=== PATIENT | male | born 1955 | race Caucasian/White ===

== ENCOUNTER 2017-05-21 15:22 | Inpatient (IN) | payer SELFPAY ==
[~2017-05-21] VITALS: Ht 167.6 cm; Wt 72.8 kg
--- NOTE | ~2017-05-21 | EKG ---
[address] [address] ELECTROCARDIOGRAM REPORT Name: ROBE MCINTOSH Room #: 213-P ADM IN M.R.#: [id number] Admission: 05/21/17 Attend Phys: Nael Thomas MD Discharge: Date of : 53 Report #: [id number] THIS REPORT FOR: //name// [facility] Test Date: 2017-05-22 Test Time: 09:26:31 Pat Name: ROBE MCINTOSH Department: Room: 213 P Gender: M Flat Ironer: MICHAELA : 1955 Requested By: Ruma Haley Order Number: [id number] MD: Carlton Duvall Measurements Intervals [place] Rate: 103 P: 42 WI: 166 QRS: -30 QRSD: 79 T: 80 QT: 351 QTc: 460 Interpretive Statements Sinus tachycardia Abnormal R-wave progression, late transition Left ventricular hypertrophy Inferior infarct, old No previous ECG available for comparison Electronically Signed On 05-23-2017 7:34:35 BALANCE BRIDGE INSPECTOR by Carlton Duvall [email or web address] <ELECTRONICALLY SIGNED> By: Carlton Duvall MD, [facility] 05/23/17 0734 5 5 Carlton Duvall MD, [facility] /EPI
--- NOTE | ~2017-05-21 | EKG ---
[address] [address] ELECTROCARDIOGRAM REPORT Name: ROBE MCINTOSH KASSY Room #: 213-P ADM IN M.R.#: [id number] Admission: 05/21/17 Attend Phys: Nael Thomas MD Discharge: Date of : 53 Report #: [id number] THIS REPORT FOR: //name// [facility] Test Date: 2017-05-21 Test Time: 18:46:43 Pat Name: ROBE MCINTOSH Department: Room: 213 P Gender: M Dean Of Education: : 1955 Requested By: Donna Wynn Order Number: [id number] MD: Carlton Duvall Measurements Intervals [place] Rate: 110 P: 40 HI: 149 QRS: -29 QRSD: 84 T: 70 QT: 315 QTc: 427 Interpretive Statements Sinus tachycardia Poor R wave progression Inferior infarct, old No previous ECG available for comparison Electronically Signed On 05-23-2017 7:30:05 DISTRIBUTION COLLECTION OPERATOR by Carlton Duvall [email or web address] <ELECTRONICALLY SIGNED> By: Carlton Duvall MD, [facility] 05/23/17 0730 45 45 Carlton Duvall MD, FACC /EPI
--- NOTE | ~2017-05-21 | 2DMMODE ---
[place] [address] [facility] [place] [address] 2 D/M-MODE ECHOCARDIOGRAM Name: ARNALDOROBE NICHOLEWEY Room #: 213-P ADM IN M.R.#: [id number] Admission: 05/21/17 Attend Phys: Nael Thomas, Discharge: Date of : 53 Date of Service: 05/23/17 1019 Report #: [id number] THIS REPORT FOR: //name// APPROVED REPORT Study performed: 05/23/2017 09:34:24 EXAM: Comprehensive 2D, Doppler, and color-flow Echocardiogram Patient Location: Echo lab Room #: 213 Status: routine BSA: 1.82 HR: 83 bpm BP: 131/83 mmHg Rhythm: NSR Other Information Study Quality: Good Indications Chest pain, short of breath. Hx: DM, HTN, HLP 2D Dimensions RVDd: 38.93 mm LVEF(%): 27.73 (>50%) IVSd: 11.73 (7-11mm) LVOT Diam: 20.75 (18-24mm) LVDd: 44.93 mm PWd: 11.62 (7-11mm) Ascending Ao: 31.03 (22-36mm) LVDs: 39.16 (25-40mm) García's LVEF: 27.73 % Volumes Left Atrial Volume (Systole) Single Plane 4CH: 39.34 mL Single Plane 2CH: 42.60 mL LA ESV Index: 24.00 mL/m2 Aortic Valve AoV Peak Chetan.: 0.89 m/s AO Peak Gr.: 3.15 mmHg LVOT Max P.09 mmHg LVOT Max V: 0.72 m/s GISELA Vmax: 2.75 cm2 Mitral Valve E/A Ratio: 1.8 MV Decel. Time: 141.84 ms MV E Max Chetan.: 1.12 m/s [facility] [place] [address] 2 D/M-MODE ECHOCARDIOGRAM Name: ROBE MCINTOSH KASSY Room #: 213-P [facility] IN .R.#: [id number] Admission: 05/21/17 Attend Phys: Nael Thomas, Discharge: Date of : 53 Date of Service: 05/23/17 1019 Report #: [id number] MV A Chetan.: 0.62 m/s MV PHT: 41.13 ms IVRT: 62.28 ms Pulmonary Valve PV Peak Chetan.: 0.71 m/s PV Peak Gr.: 2.02 mmHg Pulmonary Vein P Vein S: 0.38 m/s P Vein D: 0.48 m/s P Vein S/D Ratio: 0.79 Tricuspid Valve TR Peak Chetan.: 2.63 m/s RAP Estimate: 5.00 mmHg TR Peak Gr.: 27.70 mmHg PA Pressure: 33.00 mmHg Left Ventricle The left ventricle is normal size. Mild concentric left ventricular hypertrophy. Left ventricular systolic function is moderate to severely decreased. LVEF is 35%. Moderate diastolic dysfunction is present (pseudonormal filling). Right Ventricle The right ventricle is normal size. The right ventricular systolic function is normal. Atria The left atrium size is normal. The right atrium size is normal. Aortic Valve The aortic valve is normal in structure. No aortic regurgitation is present. There is no aortic valvular stenosis. Mitral Valve The mitral valve is normal in structure. Mild mitral regurgitation. Tricuspid Valve The tricuspid valve is normal in structure. Trace to mild tricuspid regurgitation. Estimated PAP is 30-35mmHg. Pulmonic Valve The pulmonary valve is normal in structure. Trace pulmonic regurgitation. [facility] [address] [place] [address] 2 D/M-MODE ECHOCARDIOGRAM Name: ARNALDOROBE Room #: 213-P [facility] IN [facility]#: [id number] Admission: 05/21/17 Attend Phys: Nael Thomas, Discharge: Date of : 53 Date of Service: 05/23/17 1019 Report #: [id number] Great Vessels The aortic root is normal in size. The ascending aorta is normal in size. IVC is normal in size and collapses >50% with inspiration. Pericardium There is no pericardial effusion. <Conclusion> The left ventricle is normal size. Mild concentric left ventricular hypertrophy. Left ventricular systolic function is moderate to severely decreased. LVEF is 35%. Moderate diastolic dysfunction is present (pseudonormal filling). The right ventricle is normal size. The left atrium size is normal. The aortic valve is normal in structure. There is no aortic valvular stenosis. Mild mitral regurgitation. Trace to mild tricuspid regurgitation. Estimated PAP is 30-35mmHg. The aortic root is normal in size. There is no pericardial effusion. <ELECTRONICALLY SIGNED> By: Percy Smith MD, FACC 05/23/17 1019 1019 1019 Percy Smith MD, FACC /INF
--- NOTE | ~2017-05-21 | HC ---
[facility] [place] [address] CONSULTATION Name: ROBE MCINTOSH Room #: 213-P [facility] IN M.R.#: [id number] Admission: 05/21/17 Attend Phys: Nael Thomas MD Discharge: 05/24/17 Date of : 53 Report #: [id number] THIS REPORT FOR: //name// CC: Donna Chand HISTORY OF PRESENT ILLNESS: A 61-year-old male who was transferred here with some subtle EKG changes and recurrent chest pain, shortness of breath. He had presented to [facility]. He apparently has longstanding diabetes, and 10 years ago, he decided to stop taking all of his medications including his diabetic medicines, his hypertensives and cholesterol medicines. Apparently . He worked and retired after 35 years from the same company and now works as a cashier gambling. He has no benefits, no insurance, one reason why he did not take medications, but also felt like they will not do him any good. He has an EKG here with some nonspecific changes, delayed R waves and possibly a strain pattern consistent with LVH. Troponins are negative. His glucoses were 500, now 278 here. Creatinine 1.2. He is becoming febrile. There has been some mild cough and congestion symptoms. Temperatures up to 101 here. So there is an infectious process also going on here. White count was 11.2 there, with an H and H of 16 and 48. He was transferred here a few hours ago. BNP was 1264, so not terribly impressive. Troponins have been negative. He also presented there with initial systolic pressure of 224. PAST MEDICAL HISTORY: Positive for hypertension, diabetes, hypercholesterolemia, complete medication noncompliance, abnormal EKG with T-wave strain pattern and some questionable inversion. Hemoglobin A1c 11.0. SOCIAL HISTORY: He is . He has 3 children. Currently works as a cashier gambling. No significant alcohol or tobacco. FAMILY HISTORY: His father had his initial coronary event at age 60. IMAGING STUDIES: CT of the chest shows no evidence of a pulmonary embolism, interstitial edema is noted. He was given a shot of Lasix. So question of pneumonitis and/or heart failure or combination. Some peribronchial thickening in bilateral lower lobes due to the bronchitis. ALLERGIES: JOIE INHIBITORS. REVIEW OF SYSTEMS: Negative except for some nocturia and increasing fatigue. PHYSICAL EXAMINATION: VITAL SIGNS: Pulse is 107, blood pressure 150/74. T-max is 101.2. HEENT: ____. Pharynx is clear. NECK: Shows preserved upstrokes without JVD or bruits. LUNGS: Clear anteriorly. They are diminished in the bases. There are fine crackles in the bases bilaterally. [facility] [address] [place] [address] CONSULTATION Name: ARNALDOROBE Room #: 213-P [facility] IN M.R.#: [id number] Admission: 05/21/17 Attend Phys: Nael Thomas MD Discharge: 05/24/17 Date of : 53 Report #: [id number] CARDIOVASCULAR: Tachycardic, S1, S2. No pathologic murmur. ABDOMEN: Soft, slightly protuberant, slightly tender in the epigastric area. No HSM. EXTREMITIES: Reveal diminished pulses, but no significant edema. NEUROLOGIC: Nonfocal. SKIN: Warm and dry without xanthoma or ulcer. MUSCULOSKELETAL: No gross joint deformity. ASSESSMENT: 1. Hypertensive urgency. 2. Abnormal EKG, possible strain. 3. Suspected coronary artery disease with multiple risk factors. 4. Diabetes. 5. Hypercholesterolemia. RECOMMENDATIONS AND PLAN: Obviously treating this blood sugar elevation. Hemoglobin A1c is large. Also blood cultures have been sent. I suspect empiric antibiotics will be initiated. We will initiate Coreg 12.5 b.i.d., losartan 100, Lipitor 80 and aspirin. Troponins are negative, no need to repeat. ____ he have an echo Doppler, I suspect there is LVH and possibly some diastolic and/or systolic dysfunction from the longstanding uncontrolled hypertension. At some point, we will need testing for ischemic etiology here, but this increasing fever, bronchitis, pneumonitis necessitate infectious etiology. We will continue this. Discussed with the patient and two of his children. We will look to follow with you. <ELECTRONICALLY SIGNED> By: Percy Smith MD, FACC 06/06/17 1427 2138 0745 Percy Smith MD, FACC /nt
[2017-05-21 19:41] VITALS: BP 151/75
[2017-05-21] MEDS ORDERED: NOHOMEMEDICATIONS (20:02)
[2017-05-21 20:16] LABS: HEMATOCRIT 49.7 % (42.0-52.0); HEMOGLOBIN 16.6 gm/dL (14.0-18.0); MCH 30.2 pg (26.0-34.0); MCHC 33.5 g/dL (28.0-37.0); MCV 90.1 fL (80.0-100.0); RBC 5.51 mil/uL (4.50-6.00); WBC 13.6 thou/uL (4.0-11.0)
[2017-05-21 20:30] LABS: ALBUMIN 3.2 g/dL (3.4-5.0); CALCIUM 9.5 mg/dL (8.5-10.1); CREATININE 1.3 mg/dL (0.7-1.3); POTASSIUM 4.2 mmol/L (3.5-5.1); TOTAL BILIRUBIN 0.6 mg/dL (<0.1-1.0); TOTAL PROTEIN 7.1 g/dL (6.4-8.2)
[2017-05-21 22:24] VITALS: BP 127/59
[2017-05-22 00:45] VITALS: BP 140/66
[2017-05-22 03:45] VITALS: BP 136/70
[2017-05-22 07:41] LABS: CHOLESTEROL 176 mg/dL (<200); HDL CHOLESTEROL 40 mg/dL (>40); LDL CHOLESTEROL 111 mg/dL (<100); TC:HDL 4.4 Ratio (Not establshd); TRIGLYCERIDE 127 mg/dL (<150); VLDL 25 mg/dL (<40)
[2017-05-22 07:51] LABS: HEMATOCRIT 42.7 % (42.0-52.0); MCV 88.5 fL (80.0-100.0); RBC 4.83 mil/uL (4.50-6.00); RDW 13.5 % (10.5-14.5); WBC 9.1 thou/uL (4.0-11.0)
[2017-05-22 07:54] LABS: CREATININE 1.8 mg/dL (0.7-1.3); HEMOGLOBIN 14.5 gm/dL (14.0-18.0); MAGNESIUM 1.7 mg/dL (1.8-2.4); POTASSIUM 4.5 mmol/L (3.5-5.1)
[2017-05-22 08:55] VITALS: BP 151/90
[2017-05-22 11:40] VITALS: BP 163/87
[2017-05-22 17:15] VITALS: BP 150/93
[2017-05-22 21:05] VITALS: BP 110/66
[2017-05-23 03:43] VITALS: BP 114/64
[2017-05-23 05:13] LABS: HEMATOCRIT 40.3 % (42.0-52.0); HEMOGLOBIN 13.6 gm/dL (14.0-18.0); MCH 30.2 pg (26.0-34.0); MCHC 33.7 g/dL (28.0-37.0); MCV 89.6 fL (80.0-100.0); RBC 4.5 mil/uL (4.50-6.00); RDW 13.4 % (10.5-14.5); WBC 8.4 thou/uL (4.0-11.0)
[2017-05-23 05:24] LABS: CALCIUM 8.2 mg/dL (8.5-10.1); CREATININE 1.9 mg/dL (0.7-1.3); MAGNESIUM 1.8 mg/dL (1.8-2.4); POTASSIUM 4.1 mmol/L (3.5-5.1)
[2017-05-23 07:40] VITALS: BP 131/83
[2017-05-23 15:53] VITALS: BP 136/77
[2017-05-23 19:28] VITALS: BP 137/73
[2017-05-24 02:11] LABS: GLYCOHEMOGLOBIN (HGB A1C) 11.5 % (4.8-5.6)
[2017-05-24 03:36] LABS: HEMATOCRIT 43.2 % (42.0-52.0); HEMOGLOBIN 14.5 gm/dL (14.0-18.0); MCH 30.2 pg (26.0-34.0); MCHC 33.6 g/dL (28.0-37.0); MCV 89.8 fL (80.0-100.0); RBC 4.81 mil/uL (4.50-6.00); RDW 13.3 % (10.5-14.5); WBC 8.9 thou/uL (4.0-11.0)
[2017-05-24 03:39] VITALS: BP 146/83
[2017-05-24 03:42] LABS: CALCIUM 8.4 mg/dL (8.5-10.1); CREATININE 1.5 mg/dL (0.7-1.3)
[2017-05-24 07:50] VITALS: BP 145/78
[2017-05-24 11:28] VITALS: BP 154/75
[2017-05-24] MEDS ORDERED: LEVAQUIN 750 M750 MG PO (12:48)
[2017-05-24] MEDS ORDERED: LIPITOR80 MG PO (12:49)
[2017-05-24] MEDS ORDERED: LASIX 40 MG TAB40 M2 PO (12:58)
[2017-05-24] MEDS ORDERED: VENTOLIN HFA 1818 GM INH (12:58)
[2017-05-24] MEDS ORDERED: ASA5UEC PO (12:58)
[2017-05-24] MEDS ORDERED: LANTUS100 UNIT/M SUBQ (12:58)
[2017-05-24] MEDS ORDERED: COZAAR100 MG PO (12:58)
[2017-05-24] MEDS ORDERED: CARVEDILOL12.5 MG PO (13:02)
[2017-05-24 13:43] VITALS: BP 154/75
== END 2017-05-24 15:05 | disposition home or self-care (01) | DRG 193 ==
LOC: 3N 15:22 → 2N 16:12
PROVIDERS: Internal Medicine; Nurse Practitioner
DX: J18.9 Pneumonia, unspecified organism (principal); J96.01 Acute respiratory failure with hypoxia; N17.9 Acute kidney failure, unspecified; I42.9 Cardiomyopathy, unspecified; I10 Essential (primary) hypertension; E78.5 Hyperlipidemia, unspecified; E11.65 Type 2 diabetes mellitus with hyperglycemia; I16.0 Hypertensive urgency; E78.00 Pure hypercholesterolemia, unspecified; Z91.14 Patient's other noncompliance with medication regimen; Z88.8 Allergy status to other drugs, medicaments and biological substances; Z82.49 Family history of ischemic heart disease and other diseases of the circulatory system
CPT/HCPCS: 10081

== ENCOUNTER → 2019-08-24 | Outpatient (CLI) | payer OTHER ==
[~2019-08-24] MED LIST: ASA5UEC PO; BASAGLAR K100 UNIT/1 SUBQ; CARVEDILOL12.5 MG PO; COZAAR 25 MG TA25 M1 PO; COZAAR100 MG PO; IRON18 M1 PO; LANTUS100 UNIT/M SUBQ; LASIX 40 MG TAB40 M2 PO; LEVAQUIN 750 M750 MG PO; LIPITOR80 MG PO; NOHOMEMEDICATIONS; NOVOLOG100 UNIT/M; OSTERA TABLET1 EAC1 PO; PEPCID AC10 MG PO; PLAVIX 75 MG TA75 MG PO; TORSEMIDE20 MG PO; UNICOMPLEX M TA1 TA1 PO; VENTOLIN HFA 1818 GM INH; XARELTO15 MG PO
== END ==
LOC: SJCVCIMAG 09:19
PROVIDERS: ATTEND Internal Medicine Cardiovascular Disease
DX: I70.203 Unspecified atherosclerosis of native arteries of extremities, bilateral legs (principal); I10 Essential (primary) hypertension; E78.5 Hyperlipidemia, unspecified; E11.9 Type 2 diabetes mellitus without complications; Z88.8 Allergy status to other drugs, medicaments and biological substances; Z79.899 Other long term (current) drug therapy; Z95.820 Peripheral vascular angioplasty status with implants and grafts

== ENCOUNTER → 2019-08-30 | Outpatient (CLI) | payer OTHER ==
[~2019-08-30] MED LIST changes: -BASAGLAR K100 UNIT/1 SUBQ; -COZAAR 25 MG TA25 M1 PO; -IRON18 M1 PO; -NOVOLOG100 UNIT/M; -OSTERA TABLET1 EAC1 PO; -PEPCID AC10 MG PO; -PLAVIX 75 MG TA75 MG PO; -TORSEMIDE20 MG PO; -UNICOMPLEX M TA1 TA1 PO; -XARELTO15 MG PO
== END ==
LOC: SJCVC 09:28
DX: R94.31 Abnormal electrocardiogram [ECG] [EKG] (principal); I25.10 Atherosclerotic heart disease of native coronary artery without angina pectoris; I73.9 Peripheral vascular disease, unspecified; E78.00 Pure hypercholesterolemia, unspecified; I70.1 Atherosclerosis of renal artery; I48.0 Paroxysmal atrial fibrillation; D68.59 Other primary thrombophilia; I12.9 Hypertensive chronic kidney disease with stage 1 through stage 4 chronic kidney disease, or unspecified chronic kidney disease; N18.3 Chronic kidney disease, stage 3 (moderate); E08.00 Diabetes mellitus due to underlying condition with hyperosmolarity without nonketotic hyperglycemic-hyperosmolar coma (NKHHC); Z79.4 Long term (current) use of insulin; Z79.899 Other long term (current) drug therapy

== ENCOUNTER → 2019-09-20 | Outpatient (CLI) | payer OTHER ==
[~2019-09-20] MED LIST changes: +BASAGLAR K100 UNIT/1 SUBQ; +COZAAR 25 MG TA25 M1 PO; +IRON18 M1 PO; +NOVOLOG100 UNIT/M; +OSTERA TABLET1 EAC1 PO; +PEPCID AC10 MG PO; +PLAVIX 75 MG TA75 MG PO; +TORSEMIDE20 MG PO; +UNICOMPLEX M TA1 TA1 PO; +XARELTO15 MG PO
== END ==
LOC: SJCVCIMAG 08:10
PROVIDERS: ATTEND Internal Medicine Cardiovascular Disease
DX: I13.10 Hypertensive heart and chronic kidney disease without heart failure, with stage 1 through stage 4 chronic kidney disease, or unspecified chronic kidney disease (principal); E11.22 Type 2 diabetes mellitus with diabetic chronic kidney disease; N18.9 Chronic kidney disease, unspecified; I48.0 Paroxysmal atrial fibrillation; I42.9 Cardiomyopathy, unspecified; I25.10 Atherosclerotic heart disease of native coronary artery without angina pectoris; E78.5 Hyperlipidemia, unspecified; Z79.4 Long term (current) use of insulin; Z79.01 Long term (current) use of anticoagulants; Z79.899 Other long term (current) drug therapy; Z88.8 Allergy status to other drugs, medicaments and biological substances

== ENCOUNTER → 2019-10-02 | Outpatient (CLI) | payer OTHER | LOC: SJCVCIMAG 08:24 | PROVIDERS: ATTEND Internal Medicine Cardiovascular Disease | DX: I10 Essential (primary) hypertension (principal); I25.10 Atherosclerotic heart disease of native coronary artery without angina pectoris; I70.1 Atherosclerosis of renal artery; I73.9 Peripheral vascular disease, unspecified; E78.00 Pure hypercholesterolemia, unspecified; E08.00 Diabetes mellitus due to underlying condition with hyperosmolarity without nonketotic hyperglycemic-hyperosmolar coma (NKHHC); I42.9 Cardiomyopathy, unspecified; I48.91 Unspecified atrial fibrillation; E11.9 Type 2 diabetes mellitus without complications; E78.5 Hyperlipidemia, unspecified; Z79.899 Other long term (current) drug therapy; Z79.4 Long term (current) use of insulin ==

== ENCOUNTER → 2020-02-26 | Outpatient (CLI) | payer OTHER ==
[~2020-02-26] MED LIST changes: +CLOPIDOGREL75 MG PO; +FAMOTIDINE 10 M10 MG PO; +HUMALOG100 UNIT/1 SUBQ; +LANTUS SUBQ; +NOVOLIN N100 UNIT/1 SUBQ; +OLMESARTAN MEDO40 MG PO; +TYLENOL325 M1 PO
== END ==
LOC: SJCVCIMAG 11:59
PROVIDERS: ATTEND Nuclear Medicine Nuclear Cardiology
DX: I65.23 Occlusion and stenosis of bilateral carotid arteries (principal); I70.203 Unspecified atherosclerosis of native arteries of extremities, bilateral legs; R94.31 Abnormal electrocardiogram [ECG] [EKG]; I25.10 Atherosclerotic heart disease of native coronary artery without angina pectoris; E11.51 Type 2 diabetes mellitus with diabetic peripheral angiopathy without gangrene; E78.00 Pure hypercholesterolemia, unspecified; E11.22 Type 2 diabetes mellitus with diabetic chronic kidney disease; I12.9 Hypertensive chronic kidney disease with stage 1 through stage 4 chronic kidney disease, or unspecified chronic kidney disease; N18.9 Chronic kidney disease, unspecified; I70.1 Atherosclerosis of renal artery; I48.0 Paroxysmal atrial fibrillation; I77.9 Disorder of arteries and arterioles, unspecified; Z98.890 Other specified postprocedural states; Z79.4 Long term (current) use of insulin; Z79.899 Other long term (current) drug therapy

== ENCOUNTER → 2020-03-10 | Outpatient (CLI) | payer OTHER ==
[~2020-03-10] VITALS: Ht 167.6 cm; Wt 79.4 kg
[2020-03-10 07:19] VITALS: BP 189/85
== END | disposition home or self-care (01) ==
LOC: CATH 06:28
PROVIDERS: ATTEND Nuclear Medicine Nuclear Cardiology
DX: I70.248 Atherosclerosis of native arteries of left leg with ulceration of other part of lower leg (principal); L97.929 Non-pressure chronic ulcer of unspecified part of left lower leg with unspecified severity; I70.1 Atherosclerosis of renal artery; I11.0 Hypertensive heart disease with heart failure; I50.9 Heart failure, unspecified; I48.91 Unspecified atrial fibrillation; I25.10 Atherosclerotic heart disease of native coronary artery without angina pectoris; E11.9 Type 2 diabetes mellitus without complications; E78.5 Hyperlipidemia, unspecified; Z98.890 Other specified postprocedural states; Z79.899 Other long term (current) drug therapy; Z79.4 Long term (current) use of insulin; Z88.8 Allergy status to other drugs, medicaments and biological substances

== ENCOUNTER → 2020-04-22 | Outpatient (CLI) | payer OTHER | LOC: SJCVCIMAG 10:06 | PROVIDERS: ATTEND Nuclear Medicine Nuclear Cardiology | DX: I70.292 Other atherosclerosis of native arteries of extremities, left leg (principal); I77.9 Disorder of arteries and arterioles, unspecified; I25.10 Atherosclerotic heart disease of native coronary artery without angina pectoris; I48.91 Unspecified atrial fibrillation; I12.9 Hypertensive chronic kidney disease with stage 1 through stage 4 chronic kidney disease, or unspecified chronic kidney disease; N18.9 Chronic kidney disease, unspecified; E78.00 Pure hypercholesterolemia, unspecified; L97.519 Non-pressure chronic ulcer of other part of right foot with unspecified severity; E08.00 Diabetes mellitus due to underlying condition with hyperosmolarity without nonketotic hyperglycemic-hyperosmolar coma (NKHHC); E78.5 Hyperlipidemia, unspecified; Z79.4 Long term (current) use of insulin; Z82.49 Family history of ischemic heart disease and other diseases of the circulatory system; Z79.899 Other long term (current) drug therapy; Z95.820 Peripheral vascular angioplasty status with implants and grafts ==

== ENCOUNTER → 2020-11-04 | Outpatient (CLI) | payer OTHER | LOC: SJCVCIMAG 09:31 | PROVIDERS: ATTEND Nuclear Medicine Nuclear Cardiology | DX: I65.23 Occlusion and stenosis of bilateral carotid arteries (principal); I70.203 Unspecified atherosclerosis of native arteries of extremities, bilateral legs; I12.9 Hypertensive chronic kidney disease with stage 1 through stage 4 chronic kidney disease, or unspecified chronic kidney disease; N18.9 Chronic kidney disease, unspecified; E11.22 Type 2 diabetes mellitus with diabetic chronic kidney disease; I70.1 Atherosclerosis of renal artery; E78.00 Pure hypercholesterolemia, unspecified; I48.91 Unspecified atrial fibrillation; E11.51 Type 2 diabetes mellitus with diabetic peripheral angiopathy without gangrene; Z79.4 Long term (current) use of insulin; Z88.8 Allergy status to other drugs, medicaments and biological substances; Z79.899 Other long term (current) drug therapy ==

== ENCOUNTER → 2020-11-11 | Outpatient (CLI) | payer OTHER ==
[~2020-11-11] VITALS: Ht 167.6 cm; Wt 66.0 kg
[~2020-11-11] MED LIST changes: +NEPHRO-VITE TA0.8 MG PO; +ORTHO DF 3,7751 EACH PO; +PROBIOTIC1 EAC7 PO; +SLOW FE142 MG PO; +STOOL SOFTENER240 MG PO; +TYLENOL325 MG PO
[2020-11-11 07:41] VITALS: BP 195/79
[2020-11-11 07:42] LABS: HEMATOCRIT 36.5 % (42.0-52.0); HEMOGLOBIN 11.7 gm/dL (14.0-18.0); MCH 30.6 pg (26.0-34.0); MCV 95.7 fL (80.0-100.0); RBC 3.81 mil/uL (4.50-6.00); RDW 14.6 % (10.5-14.5); WBC 13.6 thou/uL (4.0-11.0)
[2020-11-11 07:49] LABS: CALCIUM 9.5 mg/dL (8.5-10.1); CREATININE 2.6 mg/dL (0.7-1.3); POTASSIUM 4.3 mmol/L (3.5-5.1)
== END | disposition home or self-care (01) ==
LOC: CATH 06:43
PROVIDERS: ATTEND Nuclear Medicine Nuclear Cardiology
DX: I70.212 Atherosclerosis of native arteries of extremities with intermittent claudication, left leg (principal); T82.856A Stenosis of peripheral vascular stent, initial encounter; I70.1 Atherosclerosis of renal artery; I12.9 Hypertensive chronic kidney disease with stage 1 through stage 4 chronic kidney disease, or unspecified chronic kidney disease; E11.22 Type 2 diabetes mellitus with diabetic chronic kidney disease; N18.9 Chronic kidney disease, unspecified; E78.5 Hyperlipidemia, unspecified; I25.10 Atherosclerotic heart disease of native coronary artery without angina pectoris; I48.91 Unspecified atrial fibrillation; I42.9 Cardiomyopathy, unspecified; Z98.890 Other specified postprocedural states; Z79.899 Other long term (current) drug therapy; Z79.01 Long term (current) use of anticoagulants; Z88.8 Allergy status to other drugs, medicaments and biological substances

== ENCOUNTER 2021-02-04 14:36 | Emergency (ER) | payer OTHER ==
[~2021-02-04] VITALS: Ht 167.6 cm; Wt 63.0 kg
--- NOTE | ~2021-02-04 | EMS ---
[facility] [address] [place] [address] EMS Patient Care Report Name: ROBE MCINTOSH Room #: DEP HIRO Knowles#: [id number] Admission: 02/04/21 Attend Phys: Discharge: 02/04/21 Date of : 53 Report #: [id number] THIS REPORT FOR: //name// Report Transmitted: 02/05/2021 08:27 EMS Care Summary [facility] EMS Incident [id number] @ 02/04/2021 13:17 Incident [address] [place] [address] Patient RUBEN MCINTOSH Male, 65 Years 1955 Patient Address [address] [place] [address] Patient History Congestive Heart Failure (CHF),Diabetes,Hypertension (HTN), Patient Allergies No known allergies, Patient Medications Carvedilol, Plavix, Chief Complaint PT VOICED NO COMPLAINTS Disposition Transported No Lights/[place] Dispatch Reason Convulsions/Seizure Transported To [facility] Narrative [facility]IC 141 WAS DISPATCHED BY 911 TO [address] [facility], C-1 FOR SYNCOPE, AN ALS ASSSESSMENT WAS PERFORMED BY MANAGER PROJECT MANAGEMENT JANET AND CARE REMAINED UNDER MANAGER PROJECT MANAGEMENT JANET FOR THE DURATION OF THE CALL. [facility] [address] [place] [address] EMS Patient Care Report Name: ROBE MCINTOSH Room #: DEP ER Benson#: [id number] Admission: 02/04/21 Attend Phys: Discharge: 02/04/21 Date of : 53 Report #: [id number] ON SCENE STAFF AT [facility] STATED THAT THE PT WAS SITTING DOWN ON THE CHECKOUT BENCH AND WAS ASKING FOR SOMEONE TO CALL 911 FOR HIM. [facility] STAFF STATED THAT THE PT NEVER LOST CONSCIOUSNESS. ON SCENE PT STATED THAT HE IS A DIABETIC AND HE HAS CHECKED HIS BG AND IT WAS FINE. PT STATED THAT HE DOES HAVE CHF AND HTN. PT STATED THAT HE HAS HAD HIS BP GET VERY LOW BEFORE. PT STATED THAT HE ALSO HAS 2 STENTS IN HIS HEART. PT STATED THAT HE WOULD LIKE TO BE TRANSPORTED TO [facility]. DURING TRANSPORT PT DENIED ANY COMPLAINTS. PT DENIED CHEST PAIN, SOB, WEAKNESS, DIZZINESS, LOSS OF CONSCIOUSNESS, NUMBNESS/TINGLING, PAIN OF ANY KIND, HEADACHE, BLURRED VISION, RECENT TRAUMA, RECENT SURGERIES, RECENT ILLNESS. PT DENIED FALLING. PT STATED THAT HE WAS ABLE TO SIT DOWN WHEN HE FELT WEAK. PT STATED THAT HE WAS JUST SHOPPING AND WAS IN THE BACK OF THE STORE AND STARTED TO FEEL BAD SO HE SAT DOWN HOPING THAT IT WOULD MAKE HIM FEEL BETTER. PT STATED THAT AFTER 10 MINUTES OF SITTING HE STILL DID NOT FEEL WELL SO THE PT STATED HE MADE HIS WAY TO THE FRONT OF THE STORE AND "GRABBED A SPRITE OUT OF THE COOLER" AND DRANK IT THINKING HIS BG MIGHT BE LOW. PT STATED THAT WHEN THE "SPRITE" DID NOT WORK HE ASKED A STORE EMPLOYEE TO CALL 911. PT STATED DURING TRANSPORT THAT HE FEELS FINE NOW AND HAS NO COMPLAINTS. WHILE UNDER THE CARE OF MANAGER PROJECT MANAGEMENT JANET PT VOICED NO COMPLAINTS. O-PT CONTACT MADE WITH A 65 Y/O MALE LYING IN A SEMI-FOWLERS POSITION AT THE CHECKOUT AT [address] [facility] AT THE [facility] WITH STAFF AND BYSTANDERS AROUND HIM IN NO OBVIOUS DISTRESS> AIRWAY OPEN AND CLEAR BREATHING REGULAR AND UNLABORED CIRCULATION STRONG AND REGULAR HEAD-FACE SYMMETRICAL, NO CYANOSIS, EYES PERRLA, MOIST MUCOSAL MEMBRANES NECK-TRACHEA MIDLINE, NO JVD, NO STOMA, NO MEDIC ALERT TAGS CHEST-=RISE AND FALL, CBBS ABD-SOFT AND NON TENDER BACK-NOT ASSESSED PELVIS-STABLE AND INTACT EXTREMITIES-PMS INTACT X 4 SKIN-W/D/P A-SYNCOPE P-PT CONTACT>ABC'S,LOC, ALS ASSESSMENT>VITALS OBTAINED>PT HELPED TO THE COT USING 1 PERSON>PT SAT DOWNON THE COT IN A SEMI-FOWLERS POSITION AND WAS SECURED [facility] [address] [place] [address] EMS Patient Care Report Name: ROBE MCINTOSH Room #: DEP Benson#: [id number] Admission: 02/04/21 Attend Phys: Discharge: 02/04/21 Date of : 53 Report #: [id number] WITH STRAPS X 5>PT MOVED TO THE MICU AND SECURED>VITALS, 12 LEAD OBTAINED>IV ATTEMPTED NOT OBTAINED>BG AND TEMP OBTAINED>TRANSPORT STARTED TO [facility]>RADIO REPORT GIVEN TO [facility] WITH NO QUESTIONS OR ORDERS>PT MOVED FROM THE MICU TO ER 5 AT [facility]>COT WAS LOWERED AND PT TRANSFERRED HIMSELF FROM THE COT TO THE ER BED>FULL REPORT WAS GIVEN TO ER NURSE BEDSIDE AND PT CARE WAS TRANSFERRED>[facility] 141 WAS CLEAR OF THE CALL WITHOUT INCIDENT AND BACK IN SERVICE ALL CALLS> Initial Vitals @13:34MI Suspected: false @13:44P: 67,R: 18,BP: 158/76,GCS: 15,SpO2: 95,Revised Trauma: 12, @14:06P: 63,R: 18,BP: 166/60,GCS: 15,SpO2: 94,Revised Trauma: 12, @13:27P: 62,R: 18,BP: 157/73,GCS: 15,SpO2: 97,Revised Trauma: 12, @14:15P: 63,R: 18,BP: 180/115,GCS: 15,SpO2: 96,Revised Trauma: 12, @13:56P: 62,R: 18,BP: 164/69,GCS: 15,Temp: 98.5F,Glucose: 119,SpO2: 98,Revised Trauma: 12, Impression Syncope / Fainting Procedures @13:27 ALS Assessment Response: UnchangedSucceeded @13:45 IV Therapy - Saline Lock 0cc (18 ga) Site: Antecubital-Left Response: UnchangedFailed @14:31 ALS Assessment Response: UnchangedSucceeded @13:34 12-Lead ECG Response: UnchangedSucceeded Timeline 13:15,Call Received 13:15,Dispatch Notified 13:15,Psap Call 13:17,Dispatched 13:18,En Route 13:24,Initial Responder On Scene 13:24,On Scene 13:26,At Patient 13:27,ALS Assessment,Response: UnchangedSucceeded, 13:27,BP: 157/73 M,PULSE: 62,RR: 18 R,SPO2: 97 Ox,ETCO2: ,BG: ,PAIN: ,GCS: 15, 13:34,12-Lead ECG,Response: UnchangedSucceeded, 13:34,BP: / M,PULSE: ,RR: R,SPO2: Ox,ETCO2: ,BG: ,PAIN: ,GCS: , 13:43,Depart Scene 13:44,BP: 158/76 M,PULSE: 67,RR: 18 R,SPO2: 95 Ox,ETCO2: ,BG: ,PAIN: ,GCS: 15, 13:45,IV Therapy - Saline Lock 0cc 18 ga Site: Antecubital-Left,Response: UnchangedFailed, [facility] [address] [place] [address] EMS Patient Care Report Name: ROBE MCINTOSHWEY Room #: DEP Benson#: [id number] Admission: 02/04/21 Attend Phys: Discharge: 02/04/21 Date of : 53 Report #: [id number] 13:56,BP: 164/69 M,PULSE: 62,RR: 18 R,SPO2: 98 Ox,ETCO2: ,B,PAIN: ,GCS: 15, 14:06,BP: 166/60 M,PULSE: 63,RR: 18 R,SPO2: 94 Ox,ETCO2: ,BG: ,PAIN: ,GCS: 15, 14:15,BP: 180/115 M,PULSE: 63,RR: 18 R,SPO2: 96 Ox,ETCO2: ,BG: ,PAIN: ,GCS: 15, 14:31,ALS Assessment,Response: UnchangedSucceeded, 14:31,At Destination 14:40,Transfer Patient 14:41,Call Closed 14:42,In District Disclaimer v1.1 Copyright 2020 [employer] This EMS Care Summary contains data elements from the applicable legal record (which may be displayed differently). It is designed to provide pertinent information for the following purposes: continuity of care, clinical quality, and state data reporting. The complete legal record is available to ED staff and administrators of the receiving hospital in [facility]'s Patient Tracker. All data is provided "as is."
[2021-02-04 15:07] LABS: ABSOLUTE NEUTROPHILS 4.9 thou/uL (1.4-8.2); BASOPHILS 1.4 % (0.0-2.0); EOSINOPHILS 5.8 % (0.0-3.0); HEMOGLOBIN 11.9 gm/dL (14.0-18.0); LYMPHOCYTES 23.7 % (24.0-44.0); MCH 30.9 pg (26.0-34.0); MCHC 32.1 g/dL (28.0-37.0); MCV 96.3 fL (80.0-100.0); MONOCYTES 10.2 % (1.0-8.0); PLATELET COUNT 191 thou/uL (150-400); POLYS 58.9 % (36.0-66.0); RBC 3.84 mil/uL (4.50-6.00); RDW 13.9 % (10.5-14.5); WBC 8.3 thou/uL (4.0-11.0)
[2021-02-04 15:19] LABS: CALCIUM 8.9 mg/dL (8.5-10.1); CREATININE 2.6 mg/dL (0.7-1.3); POTASSIUM 4.7 mmol/L (3.5-5.1)
[2021-02-04 15:41] LABS: ALBUMIN 3.2 g/dL (3.4-5.0); TOTAL BILIRUBIN 0.4 mg/dL (0.2-1.0); TOTAL PROTEIN 6.8 g/dL (6.4-8.2)
[2021-02-04] MEDS ORDERED: FISH OIL 1,0001 EAC9 PO (15:53)
[2021-02-04 16:54] VITALS: BP 210/87
--- NOTE | 2021-02-05 15:45 | EKG ---
[address] [address] ELECTROCARDIOGRAM REPORT Name: ROBE MCINTOSH KASSY [id number] Admission: 02/04/21 Attend Phys: Discharge: 02/04/21 Date of : 53 Report #: [id number] [facility] ED Test Date: 2021-02-04 Test Time: 14:34:44 Pat Name: ROBE MCINTOSH Department: Room: Gender: M Training And Documentation Specialist: ASHOK : 1955 Requested By: Chris Mcleod Order Number: [id number] MD: Jamir Rodriguez Measurements Intervals [place] Rate: 70 P: 55 DC: 186 QRS: 0 QRSD: 85 T: 33 QT: 435 QTc: 470 Interpretive Statements Sinus rhythm Probable left atrial enlargement Borderline repolarization abnormality Compared to ECG 10/02/2019 07:44:49 ST (T wave) deviation no longer present Electronically Signed On 02-05-2021 15:45:35 CDT by Jamir Rodriguez [email or web address] <ELECTRONICALLY SIGNED> By: Jamir Rodriguez MD, MERGED WITH [facility] 02/05/21 1545 1434 1434 Jamir Rodriguez MD, FACC /EPI
== END 2021-02-04 16:54 | disposition home or self-care (01) ==
LOC: ER 14:36
PROVIDERS: Student in an Organized Health Care Education/Training Program
DX: R42 Dizziness and giddiness (principal); R55 Syncope and collapse; E11.9 Type 2 diabetes mellitus without complications; I10 Essential (primary) hypertension; I25.10 Atherosclerotic heart disease of native coronary artery without angina pectoris; E78.5 Hyperlipidemia, unspecified; I73.9 Peripheral vascular disease, unspecified; I48.91 Unspecified atrial fibrillation; I42.9 Cardiomyopathy, unspecified; Z90.89 Acquired absence of other organs; Z98.890 Other specified postprocedural states; Z79.891 Long term (current) use of opiate analgesic; Z79.1 Long term (current) use of non-steroidal anti-inflammatories (NSAID); Z79.899 Other long term (current) drug therapy; Z88.8 Allergy status to other drugs, medicaments and biological substances

== ENCOUNTER → 2021-02-11 | Outpatient (CLI) | payer OTHER ==
[~2021-02-11] MED LIST changes: +FISH OIL 1,0001 EAC9 PO
== END ==
LOC: SJCVCIMAG 08:50
PROVIDERS: ATTEND Nuclear Medicine Nuclear Cardiology
DX: R94.31 Abnormal electrocardiogram [ECG] [EKG] (principal); I70.203 Unspecified atherosclerosis of native arteries of extremities, bilateral legs; I70.1 Atherosclerosis of renal artery; E11.22 Type 2 diabetes mellitus with diabetic chronic kidney disease; I12.9 Hypertensive chronic kidney disease with stage 1 through stage 4 chronic kidney disease, or unspecified chronic kidney disease; N18.9 Chronic kidney disease, unspecified; L97.509 Non-pressure chronic ulcer of other part of unspecified foot with unspecified severity; I77.9 Disorder of arteries and arterioles, unspecified; I25.10 Atherosclerotic heart disease of native coronary artery without angina pectoris; I48.91 Unspecified atrial fibrillation; E78.00 Pure hypercholesterolemia, unspecified; Z79.4 Long term (current) use of insulin; I65.29 Occlusion and stenosis of unspecified carotid artery; E78.5 Hyperlipidemia, unspecified; J96.91 Respiratory failure, unspecified with hypoxia; Z79.899 Other long term (current) drug therapy; Z82.49 Family history of ischemic heart disease and other diseases of the circulatory system; Z88.8 Allergy status to other drugs, medicaments and biological substances

== ENCOUNTER → 2021-03-17 | Outpatient (CLI) | payer OTHER | LOC: SJCVCIMAG 08:36 | PROVIDERS: ATTEND Internal Medicine Cardiovascular Disease | DX: I08.1 Rheumatic disorders of both mitral and tricuspid valves (principal); I27.20 Pulmonary hypertension, unspecified; I48.91 Unspecified atrial fibrillation; I25.10 Atherosclerotic heart disease of native coronary artery without angina pectoris; I70.1 Atherosclerosis of renal artery; I73.9 Peripheral vascular disease, unspecified; I77.9 Disorder of arteries and arterioles, unspecified; E78.00 Pure hypercholesterolemia, unspecified; I42.9 Cardiomyopathy, unspecified; I48.0 Paroxysmal atrial fibrillation; E11.9 Type 2 diabetes mellitus without complications; E78.5 Hyperlipidemia, unspecified; I10 Essential (primary) hypertension; I65.23 Occlusion and stenosis of bilateral carotid arteries; R06.00 Dyspnea, unspecified; R51.9 Headache, unspecified; Z79.899 Other long term (current) drug therapy; Z88.8 Allergy status to other drugs, medicaments and biological substances ==